=== PATIENT | male | born 1940 | race Caucasian/White ===

== ENCOUNTER 2018-01-19 11:34 | Emergency (ER) | payer OTHER, MEDICARE ==
[~2018-01-19] VITALS: Ht 188 cm; Wt 117.9 kg
[2018-01-19 11:49] VITALS: BP 145/72
--- NOTE | 2018-01-19 12:10 | ED GENERAL ADULT ---
History of Present Illness General Chief Complaint: Animal/Insect Bite Stated Complaint: INSECT BITES Source: patient, family Exam Limitations: no limitations Vital Signs & Intake/Output Vital Signs & Intake/Output Vital Signs Date Time Temp Pulse Resp B/P B/P Pulse O2 O2 Flow FiO2 Mean Ox Delivery Rate 01/19 1149 98.1 78 18 145/72 97 Room Air Allergies Coded Allergies: NO KNOWN ALLERGIES (01/07/11) Reconcile Medications Doxycycline Hyclate (Vibramycin) 100 MG CAPSULE 1 CAP PO BID CELLULITIS Triage Note: 77M NOTICED 2 ?INSECT BITES TO RIGHT UPPER ARM TODAY THAT HAVE BLISTERED CENTER AND APPEAR ERYTHEMATOUS AROUND BORDERS. DENIES ITCHING OR PAIN. UNSURE IF BITTEN BY SOMETHING. DENIES FEVERS OR CHILLS. DENIES HEADACHES, DIZZINESS, CP/PALPITATIONS/SOB. AFEBRILE Triage Nurses Notes Reviewed? yes Onset: Abrupt Duration: day(s): Timing: recent history HPI: 01/19/18 12:30 PM 77-year-old man presents to the emergency department for 2 lesions on his right upper arm. The patient states that he noticed lesions on his arm this morning. He denies any trauma. However he has been getting dressed in the dark and may have inadvertently been bitten or injured himself. On physical exam he has 2 lesions that are circular with surrounding erythema one is on his right proximal bicep the other is on the distal bicep. There are no vesicles; one area has a ulceration the other area has a papule. There are no groups of lesions. There is no pain. There is no itching. The findings are most consistent with traumatic lesions versus insect bites. Past History Travel History Traveled to [place] past 21 day No Medical History Any Pertinent Medical History? see below for history Surgical History Surgical History: non-contributory Psychosocial History What is your primary language Georgian Family History Hx Contributory? No Review of Systems Review of Systems Constitutional: Denies: fever. EENTM: Denies: visual changes. Respiratory: Denies: short of breath. Cardiovascular: Denies: chest pain. GI: Denies: abdominal pain. Genitourinary: Reports: no symptoms. Musculoskeletal: Reports: see HPI. Skin: Denies: rash. Neurological/Psychological: Reports: no symptoms. Hematologic/Endocrine: Reports: no symptoms. Immunologic/Allergic: Reports: no symptoms. Physical Exam Physical Exam General Appearance: alert, awake, anxious, mild distress Head: atraumatic, normal appearance Eyes: Bilateral: normal appearance, PERRL, EOMI. Ears, Nose, Throat: normal pharynx, normal ENT inspection, hearing grossly normal Neck: normal inspection, supple, full range of motion Respiratory: normal breath sounds, chest non-tender, no respiratory distress Cardiovascular: regular rate/rhythm Peripheral Pulses: 4+ radial (R), 4+ radial (L) Back: normal range of motion Extremities: inflammation Neurologic/Psych: no motor/sensory deficits, awake, alert, oriented x 3 Skin: rash Comments: Physical exam was otherwise unremarkable other than to quarter sized erythematous lesions on the right bicep. Free range of motion to the right arm. No ECM. No pus. No pain or tenderness. No itching. He was placed on Vibramycin instructed to follow-up in ED in 48 hours or return sooner if worse. Core Measures ACS in differential dx? No CVA/TIA Diagnosis: No Sepsis Present: No Sepsis Focused Exam Completed? No Progress Differential Diagnoses I considered the following diagnoses in my evaluation of the patient: [ Cellulitis, Lyme disease, superficial trauma, foreign body, varicella-zoster, necrotizing fasciitis, DVT,] Plan of Care: Follow-up in ED in 48 hours. Initial ED EKG: none Departure Departure Disposition: HOME OR SELF CARE Condition: Stable Clinical Impression Primary Impression: Insect bites Secondary Impressions: Cellulitis Referrals: Tyrell [facility],Blake Hayward (PCP/Family) Departure Forms: Customer Survey General Discharge Information Prescriptions: Current Visit Scripts Doxycycline Hyclate (Vibramycin) 1 CAP PO BID #[id number] CAP Critical Care Note Critical Care Note Critical Care Time: non-applicable
[2018-01-19] MEDS ORDERED: VIBRAMYCIN100 MG PO (12:19)
== END 2018-01-19 12:27 ==
LOC: ERH 11:34
DX: S40.861A Insect bite (nonvenomous) of right upper arm, initial encounter (principal); L03.113 Cellulitis of right upper limb; W57.XXXA Bitten or stung by nonvenomous insect and other nonvenomous arthropods, initial encounter; Y92.9 Unspecified place or not applicable; Y93.9 Activity, unspecified

== ENCOUNTER 2018-01-21 14:58 | Emergency (ER) | payer OTHER, MEDICARE ==
[~2018-01-21 14:58] MED LIST: VIBRAMYCIN100 MG PO
[2018-01-21 15:02] VITALS: BP 138/76
--- NOTE | 2018-01-21 15:10 | ED ANIMAL BITE/WOUND CHECK ---
History of Present Illness General Chief Complaint: Suture Removal/Wound Recheck Stated Complaint: WOUND RECHECK Source: patient, family, old records Exam Limitations: no limitations Vital Signs & Intake/Output Vital Signs & Intake/Output Vital Signs Date Time Temp Pulse Resp B/P B/P Pulse O2 O2 Flow FiO2 Mean Ox Delivery Rate 01/21 1502 97.6 72 18 138/76 98 Allergies Coded Allergies: NO KNOWN ALLERGIES (01/07/11) Reconcile Medications Doxycycline Hyclate (Vibramycin) 100 MG CAPSULE 1 CAP PO BID CELLULITIS Triage Note: HERE FOR RECHECK UF R UPPER ARM (2 INSECT BITES), SEEN ON 01/19. DENIES PAIN. Triage Nurses Notes Reviewed? yes HPI: Patient was sent for a wound check from bug bite to his right upper arm. Patient is taking the antibiotics as prescribed. Patient states that it is getting much better. There are no fevers or chills. There is no pain. Past History Travel History Traveled to [place] past 21 day No Medical History Any Pertinent Medical History? see below for history Musculoskeletal: osteoarthritis Endocrine: diabetes Surgical History Surgical History: non-contributory Psychosocial History What is your primary language [place] Tobacco Use: Quit >30 days ago ETOH Use: denies use Illicit Drug Use: denies illicit drug use Family History Hx Contributory? No Review of Systems Review of Systems Constitutional: Reports: no symptoms. Respiratory: Reports: no symptoms. Cardiovascular: Reports: no symptoms. Musculoskeletal: Reports: no symptoms. Skin: Reports: see HPI. Immunologic/Allergic: Reports: no symptoms. Physical Exam Physical Exam General Appearance: well developed/nourished, alert, awake, mild distress Head: atraumatic, normal appearance Eyes: Bilateral: PERRL, EOMI. Ears, Nose, Throat: normal pharynx, normal ENT inspection, hearing grossly normal Neck: normal inspection, supple, full range of motion Respiratory: normal breath sounds, chest non-tender, no respiratory distress, lungs clear Cardiovascular: regular rate/rhythm, normal peripheral pulses Neurologic/Psych: no motor/sensory deficits, awake, alert, oriented x 3, normal gait, normal mood/affect Skin: ERYTHMEA Progress Differential Diagnosis: cellulitis Plan of Care: CONTINUE ABX Departure Departure Disposition: HOME OR SELF CARE Condition: Stable Clinical Impression Primary Impression: Visit for wound check Referrals: Tyrell [facility],Blake Hayward (PCP/Family) Additional Instructions: CONTINUE THE ANTIBIOTICS REUTRN IF SYMPTOMS WORSEN OR FOR ANY CONCERNS Departure Forms: Customer Survey General Discharge Information
== END 2018-01-21 15:18 ==
LOC: ERH 14:58
DX: Z48.00 Encounter for change or removal of nonsurgical wound dressing (principal)